=== PATIENT | male | born 1965 | race American Indian/Alaskan Native ===

== ENCOUNTER 2017-05-17 18:07 | Emergency (ER) | payer OTHER ==
[2017-05-17 19:33] VITALS: BP 145/82
--- NOTE | 2017-05-17 23:06 | Emergency Department Report ---
ED Recheck HPI - General Chief Complaint: Pain General Stated Complaint: MED REFILL Time Seen by Provider: 05/17/17 22:56 Source: patient Mode of arrival: Ambulatory Limitations: No Limitations - History of Present Illness Initial Comments: This is a 52-year-old male nontoxic, well nourished in appearance, no acute signs of distress presents to the ED complaining of medication refill. Patient stated he is currently from [place] and has been seeing a primary care doctor Dr. Velásquez in [place] and stated that the Christen stated he will not refill patient medication and is requesting patient to follow-up with a local primary care doctor. Patient denies any symptoms of headache, chest pain, shortness of breath, numbness, tingling, fever, chills, nausea, vomiting. Patient denies any symptoms. Patient stated he is here just to get a refill medication for pantoprazole, HCTZ, and ibuprofen. Patient denies any allergies. Medical history includes hypertension. MD Complaint: medication refill request Returns Today for: request for prescription Symptoms Since Prior Visit: no new symptoms Associated Symptoms: none. denies: fever, chills, chest pain, shortness of breath, rash, malaise, nasuea, abdominal pain - Related Data Previous Rx's Medication Instructions Recorded Last Taken Type Cephalexin [Keflex] 250 mg PO BID #10 capsule 07/08/16 Unknown Rx Hydrochlorothiazide [HCTZ] 25 mg PO QDAY #30 tablet 05/17/17 Unknown Rx Ibuprofen [Motrin 600 MG tab] 600 mg PO DAILY PRN #30 tablet 05/17/17 Unknown Rx Pantoprazole Sodium 40 mg PO DAILY #30 tablet. 05/17/17 Unknown Rx Allergies Allergy/AdvReac Type Severity Reaction Status Date / Time No Known Allergies Allergy Verified 07/07/16 23:09 ED Review of Systems ROS: Stated complaint: MED REFILL Other details as noted in HPI Constitutional: denies: chills, fever Eyes: denies: eye pain, eye discharge, vision change ENT: denies: ear pain, throat pain Respiratory: denies: cough, shortness of breath, wheezing Cardiovascular: denies: chest pain, palpitations Endocrine: no symptoms reported Gastrointestinal: denies: abdominal pain, nausea, diarrhea Genitourinary: denies: urgency, dysuria Musculoskeletal: denies: back pain, joint swelling, arthralgia Skin: denies: rash, lesions Neurological: denies: headache, weakness, paresthesias Psychiatric: denies: anxiety, depression Hematological/Lymphatic: denies: easy bleeding, easy bruising ED Past Medical Hx - Past Medical History Hx Hypertension: Yes Additional medical history: high cholestrol - Surgical History Additional Surgical History: hernia - Social History Smoking Status: Current Every Day Smoker Substance Use Type: Alcohol - Medications Home Medications: Home Medications Medication Instructions Recorded Confirmed Last Taken Type Cephalexin [Keflex] 250 mg PO BID #10 capsule 07/08/16 Unknown Rx Hydrochlorothiazide [HCTZ] 25 mg PO QDAY #30 tablet 05/17/17 Unknown Rx Ibuprofen [Motrin 600 MG tab] 600 mg PO DAILY PRN #30 tablet 05/17/17 Unknown Rx Pantoprazole Sodium 40 mg PO DAILY #30 tablet. 05/17/17 Unknown Rx ED Physical Exam - General Limitations: No Limitations General appearance: alert, in no apparent distress - Head Head exam: Present: atraumatic, normocephalic - Eye Eye exam: Present: normal appearance, PERRL, EOMI. Absent: scleral icterus, conjunctival injection, nystagmus, periorbital swelling, periorbital tenderness Pupils: Present: normal accommodation - ENT ENT exam: Present: normal exam, normal orophraynx, mucous membranes moist, TM's normal bilaterally, normal external ear exam - Neck Neck exam: Present: normal inspection, full ROM. Absent: tenderness, meningismus, lymphadenopathy, thyromegaly - Respiratory Respiratory exam: Present: normal lung sounds bilaterally. Absent: respiratory distress, wheezes, rales, rhonchi, stridor, chest wall tenderness, accessory muscle use, decreased breath sounds, prolonged expiratory - Cardiovascular Cardiovascular Exam: Present: regular rate, normal rhythm. Absent: systolic murmur, diastolic murmur, rubs, gallop - GI/Abdominal GI/Abdominal exam: Present: soft, normal bowel sounds - Rectal Rectal exam: Present: deferred - Extremities Exam Extremities exam: Present: normal inspection, full ROM, normal capillary refill. Absent: tenderness, pedal edema, joint swelling, calf tenderness - Back Exam Back exam: Present: normal inspection, full ROM. Absent: tenderness, CVA tenderness (R), CVA tenderness (L), muscle spasm, paraspinal tenderness, vertebral tenderness, rash noted - Neurological Exam Neurological exam: Present: alert, oriented X3, CN II-XII intact, normal gait, reflexes normal - Psychiatric Psychiatric exam: Present: normal affect, normal mood - Skin Skin exam: Present: warm, dry, intact, normal color. Absent: rash ED Course Vital Signs 05/17/17 19:27 Temperature 97.6 F Pulse Rate 60 Respiratory 16 Rate Blood Pressure 145/82 O2 Sat by Pulse 98 Oximetry - Reevaluation(s) Reevaluation #1: 05/17/17 23:04 Patient speaking in full sentences with no signs of distress. ED Recheck MDM - Medical Decision Making This is a 52-year-old male that presents with a list from Dr. Velásquez's office with all the medications that he is currently taking. The list does include pantoprazole sodium DR 40 mg daily, HCTZ 25 mg daily, and ibuprofen 600 mg by mouth daily. I will refill his medication and given follow-up with a primary care doctor. Critical care attestation.: If time is entered above; I have spent that time in minutes in the direct care of this critically ill patient, excluding procedure time. ED Disposition Clinical Impression: Medication refill Disposition: DC-01 TO HOME OR SELFCARE Is pt being admited?: No Does the pt Need Aspirin: No Condition: Stable Instructions: Pantoprazole (By mouth), Ibuprofen (By mouth), Hydrochlorothiazide (By mouth) Additional Instructions: follow-up with a primary care doctor in 3-5 days or if symptoms worsen and continue return to emergency room as soon as possible possible. Prescriptions: Hydrochlorothiazide [HCTZ] 25 mg PO QDAY #30 tablet Ibuprofen [Motrin 600 MG tab] 600 mg PO DAILY PRN #30 tablet PRN Reason: Pain Pantoprazole Sodium 40 mg PO DAILY #30 tablet. Referrals: CHANA ANN [Other] - 3-5 Days CHANA CARTY MD [Staff Physician] - 3-5 Days [facility] [Outside] - 3-5 Days [facility] [Outside] - 3-5 Days Forms: Work/School Release Form(ED)
== END 2017-05-17 23:18 | disposition home or self-care (01) ==
LOC: ED 18:07
DX: Z76.0 Encounter for issue of repeat prescription (principal); I10 Essential (primary) hypertension; E78.00 Pure hypercholesterolemia, unspecified; F17.200 Nicotine dependence, unspecified, uncomplicated
CPT/HCPCS: 99282

== ENCOUNTER 2017-06-20 10:46 | Emergency (ER) | payer OTHER ==
[2017-06-20 10:52] VITALS: BP 136/91
--- NOTE | 2017-06-20 12:33 | Emergency Department Report ---
ED Recheck HPI - General Chief Complaint: Medical Clearance Stated Complaint: MED REFILL Time Seen by Provider: 06/20/17 11:56 Source: patient Mode of arrival: Ambulatory Limitations: No Limitations - History of Present Illness Initial Comments: This 52-year-old male nontoxic, well nourished in appearance, no acute signs of distress presents to the ED for medication refill. Patient that he has state Medicaid and apparently has a provider at [facility] in stating he is going back next month and needs medication refill. Patient currently taking atenolol, molar pain, hydrochlorothiazide, pantoprazole, and ibuprofen. Patient denies any current symptoms or complaints. Patient stated he needs just medication refill. Denies any allergies. Past medical history includes hypertension. MD Complaint: medication refill request Returns Today for: request for prescription Symptoms Since Prior Visit: no new symptoms Associated Symptoms: none. denies: fever, chills, chest pain, shortness of breath, rash, malaise, nasuea, abdominal pain - Related Data Previous Rx's Medication Instructions Recorded Last Taken Type Cephalexin [Keflex] 250 mg PO BID #10 capsule 07/08/16 Unknown Rx Hydrochlorothiazide [HCTZ] 25 mg PO QDAY #30 tablet 05/17/17 Unknown Rx Ibuprofen [Motrin 600 MG tab] 600 mg PO DAILY PRN #30 tablet 05/17/17 Unknown Rx Pantoprazole Sodium 40 mg PO DAILY #30 tablet. 05/17/17 Unknown Rx Amitriptyline [Elavil] 50 mg PO DAILY #30 tablet 06/20/17 Unknown Rx Atenolol 50 mg PO DAILY #30 tablet 06/20/17 Unknown Rx Hydrochlorothiazide [HCTZ] 25 mg PO QDAY #30 tablet 06/20/17 Unknown Rx Ibuprofen [Motrin 600 MG tab] 600 mg PO Q8H PRN #30 tablet 06/20/17 Unknown Rx Allergies Allergy/AdvReac Type Severity Reaction Status Date / Time No Known Allergies Allergy Verified 07/07/16 23:09 ED Review of Systems ROS: Stated complaint: MED REFILL Other details as noted in HPI Constitutional: denies: chills, fever Eyes: denies: eye pain, eye discharge, vision change ENT: denies: ear pain, throat pain Respiratory: denies: cough, shortness of breath, wheezing Cardiovascular: denies: chest pain, palpitations Endocrine: no symptoms reported Gastrointestinal: denies: abdominal pain, nausea, diarrhea Genitourinary: denies: urgency, dysuria Musculoskeletal: denies: back pain, joint swelling, arthralgia Skin: denies: rash, lesions Neurological: denies: headache, weakness, paresthesias Psychiatric: denies: anxiety, depression Hematological/Lymphatic: denies: easy bleeding, easy bruising ED Past Medical Hx - Past Medical History Previous Medical History?: Yes Hx Hypertension: Yes Additional medical history: high cholestrol - Surgical History Past Surgical History?: Yes Additional Surgical History: hernia - Social History Smoking Status: Current Every Day Smoker Substance Use Type: Alcohol - Medications Home Medications: Home Medications Medication Instructions Recorded Confirmed Last Taken Type Cephalexin [Keflex] 250 mg PO BID #10 capsule 07/08/16 Unknown Rx Hydrochlorothiazide [HCTZ] 25 mg PO QDAY #30 tablet 05/17/17 Unknown Rx Ibuprofen [Motrin 600 MG tab] 600 mg PO DAILY PRN #30 tablet 05/17/17 Unknown Rx Pantoprazole Sodium 40 mg PO DAILY #30 tablet.dr 05/17/17 Unknown Rx Amitriptyline [Elavil] 50 mg PO DAILY #30 tablet 06/20/17 Unknown Rx Atenolol 50 mg PO DAILY #30 tablet 06/20/17 Unknown Rx Hydrochlorothiazide [HCTZ] 25 mg PO QDAY #30 tablet 06/20/17 Unknown Rx Ibuprofen [Motrin 600 MG tab] 600 mg PO Q8H PRN #30 tablet 06/20/17 Unknown Rx ED Physical Exam - General Limitations: No Limitations General appearance: alert, in no apparent distress - Head Head exam: Present: atraumatic, normocephalic - Eye Eye exam: Present: normal appearance - ENT ENT exam: Present: mucous membranes moist - Neck Neck exam: Present: normal inspection - Respiratory Respiratory exam: Present: normal lung sounds bilaterally. Absent: respiratory distress - Cardiovascular Cardiovascular Exam: Present: regular rate, normal rhythm. Absent: systolic murmur, diastolic murmur, rubs, gallop - GI/Abdominal GI/Abdominal exam: Present: soft, normal bowel sounds - Rectal Rectal exam: Present: deferred - Extremities Exam Extremities exam: Present: normal inspection - Back Exam Back exam: Present: normal inspection - Neurological Exam Neurological exam: Present: alert, oriented X3 - Psychiatric Psychiatric exam: Present: normal affect, normal mood - Skin Skin exam: Present: warm, dry, intact, normal color. Absent: rash ED Course Vital Signs 06/20/17 10:50 Temperature 98.1 F Pulse Rate 100 H Respiratory 16 Rate Blood Pressure 136/91 O2 Sat by Pulse 99 Oximetry - Reevaluation(s) Reevaluation #1: 06/20/17 12:28 Patient is speaking in full sentences with no signs of distress noted. ED Recheck MDM - Medical Decision Making Patient was referred to a primary care doctor and [facility] medical clinic. Critical care attestation.: If time is entered above; I have spent that time in minutes in the direct care of this critically ill patient, excluding procedure time. ED Disposition Clinical Impression: Medication refill Disposition: - TO HOME OR SELFCARE Is pt being admited?: No Does the pt Need Aspirin: No Condition: Stable Additional Instructions: Follow-up with a primary care doctor in 3-5 days or if symptoms worsen and continue return to emergency room as soon as possible possible. Prescriptions: Amitriptyline [Elavil] 50 mg PO DAILY #30 tablet Atenolol 50 mg PO DAILY #30 tablet Hydrochlorothiazide [HCTZ] 25 mg PO QDAY #30 tablet Ibuprofen [Motrin 600 MG tab] 600 mg PO Q8H PRN #30 tablet PRN Reason: Pain Referrals: PRIMARY CAREMD [Primary Care Provider] - 3-5 Days GIAN TAYLOR MD [Staff Physician] - 3-5 Days BITA GARCIA MD [Staff Physician] - 3-5 Days [facility] [Outside] - 3-[address] [facility] [Outside] - 3-5 Days Forms: Work/School Release Form(ED)
== END 2017-06-20 12:38 | disposition home or self-care (01) ==
LOC: ED 10:46
DX: Z76.0 Encounter for issue of repeat prescription (principal); I10 Essential (primary) hypertension; E78.5 Hyperlipidemia, unspecified; F17.200 Nicotine dependence, unspecified, uncomplicated
CPT/HCPCS: 99282

== ENCOUNTER 2017-07-30 15:34 | Emergency (ER) | payer MEDICARE, MEDICAID ==
[2017-07-30 16:03] VITALS: BP 157/100
[2017-07-30] MEDS ORDERED: HCTZ PO ONE (17:35)
--- NOTE | 2017-07-30 17:40 | Emergency Department Report ---
HPI - General Chief Complaint: Medical Clearance Time Seen by Provider: 07/30/17 17:20 - HPI HPI: 52-year-old male with a history of blood pressure presents to ED stating that he ran out of those medications 5 days ago and is here for refill. Patient states he has [id number] [place] from [facility] and will cannot be seen by [facility] provider. Patient states he has no symptoms today no chest pain or shortness of breath no fever no chills no dizziness. he states that is here to get his medication refill. ED Past Medical Hx - Past Medical History Previous Medical History?: Yes Hx Hypertension: Yes Additional medical history: high cholestrol - Surgical History Additional Surgical History: hernia - Social History Smoking Status: Current Every Day Smoker Substance Use Type: Alcohol - Medications Home Medications: Home Medications Medication Instructions Recorded Confirmed Last Taken Type Cephalexin [Keflex] 250 mg PO BID #10 capsule 07/08/16 Unknown Rx Hydrochlorothiazide [HCTZ] 25 mg PO QDAY #30 tablet 06/20/17 Unknown Rx Ibuprofen [Motrin 600 MG tab] 600 mg PO Q8H PRN #30 tablet 06/20/17 Unknown Rx Amitriptyline [Elavil] 50 mg PO DAILY #30 tablet 07/30/17 Unknown Rx Atenolol 50 mg PO DAILY #30 tablet 07/30/17 Unknown Rx Hydrochlorothiazide [HCTZ] 25 mg PO QDAY #30 tablet 07/30/17 Unknown Rx Ibuprofen [Motrin 600 MG tab] 600 mg PO DAILY PRN #30 tablet 07/30/17 Unknown Rx Pantoprazole Sodium 40 mg PO DAILY #30 tablet. 07/30/17 Unknown Rx ED Review of Systems ROS: Stated complaint: MEDS REFILL Other details as noted in HPI Constitutional: denies: chills, fever Eyes: denies: eye pain, eye discharge, vision change ENT: denies: ear pain, throat pain Respiratory: denies: cough, shortness of breath, wheezing Cardiovascular: denies: chest pain, palpitations Endocrine: no symptoms reported Gastrointestinal: denies: abdominal pain, nausea, diarrhea Genitourinary: denies: urgency, dysuria Musculoskeletal: denies: back pain, joint swelling, arthralgia Skin: denies: rash, lesions Neurological: denies: headache, weakness, paresthesias Psychiatric: denies: anxiety, depression Hematological/Lymphatic: denies: easy bleeding, easy bruising Physical Exam - Physical Exam Vital Signs: Vital Signs 07/30/17 15:57 Temperature 98.1 F Pulse Rate 114 H Respiratory 18 Rate Blood Pressure 157/100 O2 Sat by Pulse 98 Oximetry Physical Exam: GENERAL: Alert and oriented x3, no apparent distress, Normal Gait, atraumatic. HEAD: Head is normocephalic and a-traumatic. EYES: Extra ocular muscles are intact. Pupils are equal, round, and reactive to light and accommodation. LUNGS: Symetrical with respiration, No wheezing, no rales or crackles, CTAB. HEART: S1, S2 present, regular rate and rhythm without murmur, no rubs, no gallops. Non tender to palpation SKIN: Warm and dry, No lesions, No ulceration or induration present. ED Course Vital Signs 07/30/17 15:57 Temperature 98.1 F Pulse Rate 114 H Respiratory 18 Rate Blood Pressure 157/100 O2 Sat by Pulse 98 Oximetry ED Medical Decision Making - Medical Decision Making This is a year-old male presents for medication refill ED course: Patient received a dose of hydrochlorothiazide while the ED to reduce blood pressure. Patient is asymptomatic he reports no symptoms. Discussed with patient that I will refill his medications and will give him referral versus free clinics where he can go and get care. Vital signs are stable patient is in no acute distress Critical care attestation.: If time is entered above; I have spent that time in minutes in the direct care of this critically ill patient, excluding procedure time. ED Disposition Clinical Impression: Medication refill Disposition: DC-01 TO HOME OR SELFCARE Is pt being admited?: No Does the pt Need Aspirin: No Condition: Stable Instructions: Chronic Hypertension (ED) Additional Instructions: Make sure to follow up with the primary care physician as discussed. Take all your medications as you've been prescribed. If you have any worsening symptoms or develop new symptoms please return to ED immediately. Prescriptions: Amitriptyline [Elavil] 50 mg PO DAILY #30 tablet Atenolol 50 mg PO DAILY #30 tablet Hydrochlorothiazide [HCTZ] 25 mg PO QDAY #30 tablet Ibuprofen [Motrin 600 MG tab] 600 mg PO DAILY PRN #30 tablet PRN Reason: Pain Pantoprazole Sodium 40 mg PO DAILY #30 tablet. Referrals: SRINATH MARTIN MD [Primary Care Provider] - 3-5 Days [facility] [Outside] - 3-5 Days [facility] [Outside] - 3-5 Days [facility] [Outside] - 3-5 Days [facility] [Outside] - 3-5 Days [facility] [Outside] - 3-5 Days Forms: Work/School Release Form(ED) Time of Disposition: 17:40
== END 2017-07-30 18:06 | disposition home or self-care (01) ==
LOC: ED 15:34
DX: Z76.0 Encounter for issue of repeat prescription (principal); I10 Essential (primary) hypertension; E78.00 Pure hypercholesterolemia, unspecified; F17.200 Nicotine dependence, unspecified, uncomplicated
CPT/HCPCS: 99282

== ENCOUNTER 2017-08-30 06:51 | Emergency (ER) | payer MEDICAID, MEDICARE ==
[2017-08-30 14:23] VITALS: BP 133/96
--- NOTE | 2017-08-30 14:40 | Emergency Department Report ---
ED General Adult HPI - General Chief complaint: Recheck/Abnormal Lab/Rx Stated complaint: MEDS. REFILL Time Seen by Provider: 08/30/17 14:03 Source: patient Mode of arrival: Ambulatory Limitations: No Limitations - History of Present Illness Initial comments: Pt is a 52 M pmhx of HTN and HLD who presents with medication refill. Pt states that he has been out of his medication for one week. He also states that he regularly comes to the ED to get his medication refilled. Pt denies having any pain or having any medical complaints. Severity scale (0 -10): 0 - Related Data Previous Rx's Medication Instructions Recorded Last Taken Type Cephalexin [Keflex] 250 mg PO BID #10 capsule 07/08/16 Unknown Rx Hydrochlorothiazide [HCTZ] 25 mg PO QDAY #30 tablet 06/20/17 Unknown Rx Ibuprofen [Motrin 600 MG tab] 600 mg PO DAILY PRN #30 tablet 07/30/17 Unknown Rx Amitriptyline [Elavil] 50 mg PO DAILY #30 tablet 08/30/17 Unknown Rx Atenolol 50 mg PO DAILY #30 tablet 08/30/17 Unknown Rx Atorvastatin [Lipitor] 40 mg PO QHS #40 tab 08/30/17 Unknown Rx Hydrochlorothiazide [HCTZ] 25 mg PO QDAY #30 tablet 08/30/17 Unknown Rx Ibuprofen [Motrin 600 MG tab] 600 mg PO Q8H PRN #30 tablet 08/30/17 Unknown Rx Pantoprazole Sodium 40 mg PO DAILY #30 tablet. 08/30/17 Unknown Rx Allergies Allergy/AdvReac Type Severity Reaction Status Date / Time No Known Allergies Allergy Verified 08/30/17 08:57 ED Review of Systems ROS: Stated complaint: MEDS. REFILL Other details as noted in HPI Constitutional: denies: chills, fever Eyes: denies: eye pain, eye discharge, vision change ENT: denies: ear pain, throat pain Respiratory: denies: cough, shortness of breath, wheezing Cardiovascular: denies: chest pain, palpitations Endocrine: no symptoms reported Gastrointestinal: denies: abdominal pain, nausea, diarrhea Genitourinary: denies: urgency, dysuria Musculoskeletal: denies: back pain, joint swelling, arthralgia Skin: denies: rash, lesions Neurological: denies: headache, weakness, paresthesias Psychiatric: denies: anxiety, depression Hematological/Lymphatic: denies: easy bleeding, easy bruising ED Past Medical Hx - Past Medical History Previous Medical History?: Yes Hx Hypertension: Yes Additional medical history: high cholestrol - Surgical History Past Surgical History?: No Additional Surgical History: hernia - Social History Smoking Status: Current Every Day Smoker Substance Use Type: Alcohol - Medications Home Medications: Home Medications Medication Instructions Recorded Confirmed Last Taken Type Cephalexin [Keflex] 250 mg PO BID #10 capsule 07/08/16 Unknown Rx Hydrochlorothiazide [HCTZ] 25 mg PO QDAY #30 tablet 06/20/17 Unknown Rx Ibuprofen [Motrin 600 MG tab] 600 mg PO DAILY PRN #30 tablet 07/30/17 Unknown Rx Amitriptyline [Elavil] 50 mg PO DAILY #30 tablet 08/30/17 Unknown Rx Atenolol 50 mg PO DAILY #30 tablet 08/30/17 Unknown Rx Atorvastatin [Lipitor] 40 mg PO QHS #40 tab 08/30/17 Unknown Rx Hydrochlorothiazide [HCTZ] 25 mg PO QDAY #30 tablet 08/30/17 Unknown Rx Ibuprofen [Motrin 600 MG tab] 600 mg PO Q8H PRN #30 tablet 08/30/17 Unknown Rx Pantoprazole Sodium 40 mg PO DAILY #30 tablet. 08/30/17 Unknown Rx ED Physical Exam - General Limitations: No Limitations General appearance: alert, in no apparent distress - Head Head exam: Present: atraumatic, normocephalic - Eye Eye exam: Present: normal appearance - ENT ENT exam: Present: mucous membranes moist - Neck Neck exam: Present: normal inspection - Respiratory Respiratory exam: Present: normal lung sounds bilaterally. Absent: respiratory distress - Cardiovascular Cardiovascular Exam: Present: regular rate, normal rhythm. Absent: systolic murmur, diastolic murmur, rubs, gallop - GI/Abdominal GI/Abdominal exam: Present: soft, normal bowel sounds - Rectal Rectal exam: Present: deferred - Extremities Exam Extremities exam: Present: normal inspection - Back Exam Back exam: Present: normal inspection - Neurological Exam Neurological exam: Present: alert, oriented X3 - Psychiatric Psychiatric exam: Present: normal affect, normal mood - Skin Skin exam: Present: warm, dry, intact, normal color. Absent: rash ED Course Vital Signs 08/30/17 08/30/17 08:55 14:23 Temperature 98.2 F 98 F Pulse Rate 72 77 Respiratory 16 16 Rate Blood Pressure 144/100 Blood Pressure 133/96 [Left] O2 Sat by Pulse 97 99 Oximetry ED Medical Decision Making - Medical Decision Making Cdx: Medication refill I will refill pt's medications I also discussed with patient the need to get a primary care doctor to write prescriptions for him. Discussed plan with patient and patient agrees with plan additional verbal discharge instructions were given. Critical care attestation.: If time is entered above; I have spent that time in minutes in the direct care of this critically ill patient, excluding procedure time. ED Disposition Clinical Impression: Encounter for medication refill Disposition: DC-01 TO HOME OR SELFCARE Is pt being admited?: No Does the pt Need Aspirin: No Condition: Stable Prescriptions: Atorvastatin [Lipitor] 40 mg PO QHS #40 tab Amitriptyline [Elavil] 50 mg PO DAILY #30 tablet Atenolol 50 mg PO DAILY #30 tablet Hydrochlorothiazide [HCTZ] 25 mg PO QDAY #30 tablet Ibuprofen [Motrin 600 MG tab] 600 mg PO Q8H PRN #30 tablet PRN Reason: Pain Pantoprazole Sodium 40 mg PO DAILY #30 tablet.dr Referrals: DONNA ARNOLD MD [Staff Physician] - 3-5 Days
== END 2017-08-30 14:51 | disposition home or self-care (01) ==
LOC: ED 06:51
DX: Z76.0 Encounter for issue of repeat prescription (principal); I10 Essential (primary) hypertension; E78.00 Pure hypercholesterolemia, unspecified; F17.200 Nicotine dependence, unspecified, uncomplicated
CPT/HCPCS: 99282

== ENCOUNTER 2017-10-10 10:35 | Emergency (ER) | payer MEDICARE ==
[2017-10-10 11:04] VITALS: BP 157/100
--- NOTE | 2017-10-10 12:31 | Emergency Department Report ---
ED Recheck HPI - General Chief Complaint: Medical Clearance Stated Complaint: MED REFILL Time Seen by Provider: 10/10/17 12:12 Source: patient Mode of arrival: Ambulatory Limitations: No Limitations - History of Present Illness Initial Comments: This is a 52-year-old male nontoxic, well nourished in appearance, no acute signs of distress presents to the ED with c/o of medication refill. Patient stated he currently has no follow up appointment with primary care doctor and that he come to the ER to get a medication refill. Patient does state he has primary care doctor but was unable to make an appointment due to no availability 's. Patient stated he is asymptomatic and denies any symptoms. Patient denies any allergies. Past medical history includes GERD and hypertension. MD Complaint: medication refill request Symptoms Since Prior Visit: no new symptoms, improved Associated Symptoms: none. denies: fever, chills, chest pain, shortness of breath, rash, malaise, nasuea, abdominal pain - Related Data Previous Rx's Medication Instructions Recorded Last Taken Type Cephalexin [Keflex] 250 mg PO BID #10 capsule 07/08/16 Unknown Rx Hydrochlorothiazide [HCTZ] 25 mg PO QDAY #30 tablet 06/20/17 Unknown Rx Ibuprofen [Motrin 600 MG tab] 600 mg PO DAILY PRN #30 tablet 07/30/17 Unknown Rx Amitriptyline [Elavil] 50 mg PO DAILY #30 tablet 08/30/17 Unknown Rx Atenolol 50 mg PO DAILY #30 tablet 08/30/17 Unknown Rx Atorvastatin [Lipitor] 40 mg PO QHS #40 tab 08/30/17 Unknown Rx Hydrochlorothiazide [HCTZ] 25 mg PO QDAY #30 tablet 08/30/17 Unknown Rx Ibuprofen [Motrin 600 MG tab] 600 mg PO Q8H PRN #30 tablet 08/30/17 Unknown Rx Pantoprazole Sodium 40 mg PO DAILY #30 tablet. 08/30/17 Unknown Rx Amitriptyline [Elavil] 50 mg PO DAILY #30 tab 10/10/17 Unknown Rx Atenolol 50 mg PO DAILY #30 tablet 10/10/17 Unknown Rx AtorvaSTATin [Lipitor] 40 mg PO QHS #30 tab 10/10/17 Unknown Rx Hydrochlorothiazide [HCTZ] 25 mg PO QDAY #30 tablet 10/10/17 Unknown Rx Ibuprofen [Motrin] 600 mg PO Q8H PRN #30 tablet 10/10/17 Unknown Rx Pantoprazole Sodium 40 mg PO DAILY #30 tablet. 10/10/17 Unknown Rx Allergies Allergy/AdvReac Type Severity Reaction Status Date / Time No Known Allergies Allergy Verified 08/30/17 08:57 ED Review of Systems ROS: Stated complaint: MED REFILL Other details as noted in HPI Constitutional: denies: chills, fever Eyes: denies: eye pain, eye discharge, vision change ENT: denies: ear pain, throat pain Respiratory: denies: cough, shortness of breath, wheezing Cardiovascular: denies: chest pain, palpitations Endocrine: no symptoms reported Gastrointestinal: denies: abdominal pain, nausea, diarrhea Genitourinary: denies: urgency, dysuria Musculoskeletal: denies: back pain, joint swelling, arthralgia Skin: denies: rash, lesions Neurological: denies: headache, weakness, paresthesias Psychiatric: denies: anxiety, depression Hematological/Lymphatic: denies: easy bleeding, easy bruising ED Past Medical Hx - Past Medical History Hx Hypertension: Yes Hx GERD: Yes Additional medical history: high cholestrol,insomnia - Surgical History Additional Surgical History: hernia - Social History Smoking Status: Current Every Day Smoker Substance Use Type: Alcohol - Medications Home Medications: Home Medications Medication Instructions Recorded Confirmed Last Taken Type Cephalexin [Keflex] 250 mg PO BID #10 capsule 07/08/16 Unknown Rx Hydrochlorothiazide [HCTZ] 25 mg PO QDAY #30 tablet 06/20/17 Unknown Rx Ibuprofen [Motrin 600 MG tab] 600 mg PO DAILY PRN #30 tablet 07/30/17 Unknown Rx Amitriptyline [Elavil] 50 mg PO DAILY #30 tablet 08/30/17 Unknown Rx Atenolol 50 mg PO DAILY #30 tablet 08/30/17 Unknown Rx Atorvastatin [Lipitor] 40 mg PO QHS #40 tab 08/30/17 Unknown Rx Hydrochlorothiazide [HCTZ] 25 mg PO QDAY #30 tablet 08/30/17 Unknown Rx Ibuprofen [Motrin 600 MG tab] 600 mg PO Q8H PRN #30 tablet 08/30/17 Unknown Rx Pantoprazole Sodium 40 mg PO DAILY #30 tablet. 08/30/17 Unknown Rx Amitriptyline [Elavil] 50 mg PO DAILY #30 tab 10/10/17 Unknown Rx Atenolol 50 mg PO DAILY #30 tablet 10/10/17 Unknown Rx AtorvaSTATin [Lipitor] 40 mg PO QHS #30 tab 10/10/17 Unknown Rx Hydrochlorothiazide [HCTZ] 25 mg PO QDAY #30 tablet 10/10/17 Unknown Rx Ibuprofen [Motrin] 600 mg PO Q8H PRN #30 tablet 10/10/17 Unknown Rx Pantoprazole Sodium 40 mg PO DAILY #30 tablet. 10/10/17 Unknown Rx ED Physical Exam - General Limitations: No Limitations General appearance: alert, in no apparent distress - Head Head exam: Present: atraumatic, normocephalic - Eye Eye exam: Present: normal appearance - ENT ENT exam: Present: mucous membranes moist - Neck Neck exam: Present: normal inspection - Respiratory Respiratory exam: Present: normal lung sounds bilaterally. Absent: respiratory distress - Cardiovascular Cardiovascular Exam: Present: regular rate, normal rhythm. Absent: systolic murmur, diastolic murmur, rubs, gallop - GI/Abdominal GI/Abdominal exam: Present: soft, normal bowel sounds - Rectal Rectal exam: Present: deferred - Extremities Exam Extremities exam: Present: normal inspection - Back Exam Back exam: Present: normal inspection - Neurological Exam Neurological exam: Present: alert, oriented X3 - Psychiatric Psychiatric exam: Present: normal affect, normal mood - Skin Skin exam: Present: warm, dry, intact, normal color. Absent: rash ED Course Vital Signs 10/10/17 11:01 Temperature 98 F Pulse Rate 82 Respiratory 20 Rate Blood Pressure 157/100 O2 Sat by Pulse 100 Oximetry - Reevaluation(s) Reevaluation #1: 10/10/17 12:29 Patient is speaking in full sentences with no signs of distress noted. Critical care attestation.: If time is entered above; I have spent that time in minutes in the direct care of this critically ill patient, excluding procedure time. ED Disposition Clinical Impression: Medication refill HTN (hypertension) Qualifiers: Hypertension type: unspecified Qualified Code(s): I10 - Essential (primary) hypertension GERD (gastroesophageal reflux disease) Qualifiers: Esophagitis presence: without esophagitis Qualified Code(s): K21.9 - Gastro- esophageal reflux disease without esophagitis Disposition: - TO HOME OR SELFCARE Is pt being admited?: No Does the pt Need Aspirin: No Condition: Stable Instructions: Gastroesophageal Reflux Disease (ED), Hypertension (ED) Additional Instructions: Follow-up with a primary care doctor in 3-5 days or if symptoms worsen and continue return to emergency room as soon as possible. Keep a daily diary of your blood pressure and presented to primary care doctor. Prescriptions: AtorvaSTATin [Lipitor] 40 mg PO QHS #30 tab Amitriptyline [Elavil] 50 mg PO DAILY #30 tab Atenolol 50 mg PO DAILY #30 tablet Hydrochlorothiazide [HCTZ] 25 mg PO QDAY #30 tablet Ibuprofen [Motrin] 600 mg PO Q8H PRN #30 tablet PRN Reason: Pain Pantoprazole Sodium 40 mg PO DAILY #30 tablet. Referrals: PRIMARY CAREMD [Primary Care Provider] - 3-5 Days GIAN TAYLOR MD [Staff Physician] - 3-5 Days [facility] [Outside] - 3-5 Days [facility] [Outside] - 3-5 Days Forms: Work/School Release Form(ED)
== END 2017-10-10 13:04 | disposition home or self-care (01) ==
LOC: ED 10:35
DX: I10 Essential (primary) hypertension (principal); K21.9 Gastro-esophageal reflux disease without esophagitis; E78.00 Pure hypercholesterolemia, unspecified; F17.200 Nicotine dependence, unspecified, uncomplicated
CPT/HCPCS: 99282

== ENCOUNTER 2017-11-19 10:06 | Emergency (ER) | payer MEDICARE ==
--- NOTE | 2017-11-19 13:09 | Emergency Department Report ---
ED Medical Clearance HPI - General Chief complaint: Medical Clearance Stated complaint: MED REFILL Time Seen by Provider: 11/19/17 13:03 Source: patient Mode of arrival: Ambulatory Limitations: No Limitations - History of Present Illness Initial comments: 52yo male came in for medication refill. pt states that he gets his meds refilled from the ER every month. Pt states he is out of state medicaid and his insurance only allows him to get to ER or urgent care for med refill. Pt doesn' t have any complaints at this time. Pt denies n/v/cp/sob. pt denies fever, chills. Reason for Medical Clearance: other trauma Alledged Intoxication: No Compliant with Home Medications: Yes Traumatic Symptoms: denies traumatic injury Associated Symptoms: denies: chest pain, shortness of breath, palpitations, diaphoresis, denies other symptoms, confusion, cough, fever/chills, headaches, anorexia, malaise, nausea/vomiting, rash, seizure, syncope, weakness Home medications: Previous Rx's Medication Instructions Recorded Last Taken Type Cephalexin [Keflex] 250 mg PO BID #10 capsule 07/08/16 Unknown Rx Amitriptyline [Elavil] 50 mg PO DAILY #30 tablet 08/30/17 Unknown Rx Atenolol 50 mg PO DAILY #30 tablet 08/30/17 Unknown Rx Atorvastatin [Lipitor] 40 mg PO QHS #40 tab 08/30/17 Unknown Rx Hydrochlorothiazide [HCTZ] 25 mg PO QDAY #30 tablet 08/30/17 Unknown Rx Ibuprofen [Motrin 600 MG tab] 600 mg PO Q8H PRN #30 tablet 08/30/17 Unknown Rx Hydrochlorothiazide [HCTZ] 25 mg PO QDAY #30 tablet 10/10/17 Unknown Rx Ibuprofen [Motrin] 600 mg PO Q8H PRN #30 tablet 10/10/17 Unknown Rx Pantoprazole Sodium 40 mg PO DAILY #30 tablet.dr 10/10/17 Unknown Rx Amitriptyline [Elavil] 50 mg PO DAILY #8 tab 11/19/17 Unknown Rx Atenolol 50 mg PO DAILY #30 tablet 11/19/17 Unknown Rx AtorvaSTATin [Lipitor] 40 mg PO QHS #30 tab 11/19/17 Unknown Rx Hydrochlorothiazide [HCTZ] 25 mg PO QDAY #30 tablet 11/19/17 Unknown Rx Ibuprofen [Motrin 600 MG tab] 600 mg PO DAILY PRN #30 tablet 11/19/17 Unknown Rx Pantoprazole Sodium 40 mg PO DAILY #30 tablet. 11/19/17 Unknown Rx Allergies/Adverse reactions: Allergies Allergy/AdvReac Type Severity Reaction Status Date / Time No Known Allergies Allergy Verified 08/30/17 08:57 ED Review of Systems ROS: Stated complaint: MED REFILL Other details as noted in HPI Constitutional: denies: chills, fever Eyes: denies: eye pain, eye discharge, vision change ENT: denies: ear pain, throat pain Respiratory: denies: cough, shortness of breath, wheezing Cardiovascular: denies: chest pain, palpitations Endocrine: no symptoms reported Gastrointestinal: denies: abdominal pain, nausea, diarrhea Genitourinary: denies: urgency, dysuria Musculoskeletal: denies: back pain, joint swelling, arthralgia Skin: denies: rash, lesions Neurological: denies: headache, weakness, paresthesias Psychiatric: denies: anxiety, depression Hematological/Lymphatic: denies: easy bleeding, easy bruising ED Past Medical Hx - Past Medical History Hx Hypertension: Yes Hx GERD: Yes Additional medical history: high cholestrol,insomnia - Surgical History Additional Surgical History: hernia - Social History Smoking Status: Current Every Day Smoker Substance Use Type: Alcohol, Marijuana - Medications Home Medications: Home Medications Medication Instructions Recorded Confirmed Last Taken Type Cephalexin [Keflex] 250 mg PO BID #10 capsule 07/08/16 Unknown Rx Amitriptyline [Elavil] 50 mg PO DAILY #30 tablet 08/30/17 Unknown Rx Atenolol 50 mg PO DAILY #30 tablet 08/30/17 Unknown Rx Atorvastatin [Lipitor] 40 mg PO QHS #40 tab 08/30/17 Unknown Rx Hydrochlorothiazide [HCTZ] 25 mg PO QDAY #30 tablet 08/30/17 Unknown Rx Ibuprofen [Motrin 600 MG tab] 600 mg PO Q8H PRN #30 tablet 08/30/17 Unknown Rx Hydrochlorothiazide [HCTZ] 25 mg PO QDAY #30 tablet 10/10/17 Unknown Rx Ibuprofen [Motrin] 600 mg PO Q8H PRN #30 tablet 10/10/17 Unknown Rx Pantoprazole Sodium 40 mg PO DAILY #30 tablet. 10/10/17 Unknown Rx Amitriptyline [Elavil] 50 mg PO DAILY #8 tab 11/19/17 Unknown Rx Atenolol 50 mg PO DAILY #30 tablet 11/19/17 Unknown Rx AtorvaSTATin [Lipitor] 40 mg PO QHS #30 tab 11/19/17 Unknown Rx Hydrochlorothiazide [HCTZ] 25 mg PO QDAY #30 tablet 11/19/17 Unknown Rx Ibuprofen [Motrin 600 MG tab] 600 mg PO DAILY PRN #30 tablet 11/19/17 Unknown Rx Pantoprazole Sodium 40 mg PO DAILY #30 tablet. 11/19/17 Unknown Rx ED Physical Exam - General Limitations: No Limitations General appearance: alert, in no apparent distress - Head Head exam: Present: atraumatic, normocephalic - Eye Eye exam: Present: normal appearance - ENT ENT exam: Present: mucous membranes moist - Neck Neck exam: Present: normal inspection - Respiratory Respiratory exam: Present: normal lung sounds bilaterally. Absent: respiratory distress - Cardiovascular Cardiovascular Exam: Present: regular rate, normal rhythm. Absent: systolic murmur, diastolic murmur, rubs, gallop - GI/Abdominal GI/Abdominal exam: Present: soft, normal bowel sounds - Rectal Rectal exam: Present: deferred - Extremities Exam Extremities exam: Present: normal inspection - Back Exam Back exam: Present: normal inspection - Neurological Exam Neurological exam: Present: alert, oriented X3 - Psychiatric Psychiatric exam: Present: normal affect, normal mood - Skin Skin exam: Present: warm, dry, intact, normal color. Absent: rash ED Course Vital Signs 11/19/17 10:15 Temperature 98.4 F Pulse Rate 91 H Respiratory 16 Rate Blood Pressure 150/94 O2 Sat by Pulse 99 Oximetry ED Medical Decision Making - Medical Decision Making 52yo male with PMHx of HTN, HLD came in for med refill. pt states that he needs his meds filled as he has out of state medicaid insurance. Pt denies n/v/cp/ sob. I did explain to pt that we will fill up all his meds including for HTN, HLD, but he will need to see a pcp to fill up his pysch meds. ED Disposition Clinical Impression: Medication refill Disposition: DC- TO HOME OR SELFCARE Is pt being admited?: No Does the pt Need Aspirin: No Condition: Stable Prescriptions: AtorvaSTATin [Lipitor] 40 mg PO QHS #30 tab Amitriptyline [Elavil] 50 mg PO DAILY #8 tab Atenolol 50 mg PO DAILY #30 tablet Hydrochlorothiazide [HCTZ] 25 mg PO QDAY #30 tablet Ibuprofen [Motrin 600 MG tab] 600 mg PO DAILY PRN #30 tablet PRN Reason: Pain Pantoprazole Sodium 40 mg PO DAILY #30 tablet.dr Referrals: PRIMARY CARE, [Primary Care Provider] - [facility] (Please Followup with ( family physician) [facility] for further evaluation, treatment and disposition) DAV GLEZ JR, MD [Staff Physician] - 3-5 Days Time of Disposition: 13:23
[2017-11-19 13:39] VITALS: BP 152/89
== END 2017-11-19 13:40 | disposition home or self-care (01) ==
LOC: ED 10:06
DX: I10 Essential (primary) hypertension (principal); E78.00 Pure hypercholesterolemia, unspecified; G47.00 Insomnia, unspecified; K21.9 Gastro-esophageal reflux disease without esophagitis; F17.200 Nicotine dependence, unspecified, uncomplicated; Z76.0 Encounter for issue of repeat prescription
CPT/HCPCS: 99282

== ENCOUNTER 2017-12-19 09:50 | Emergency (ER) | payer SELFPAY ==
[2017-12-19 09:59] VITALS: BP 139/90
--- NOTE | 2017-12-19 10:22 | Emergency Department Report ---
Blank Doc - Documentation Documentation: Patient is 52 years old male coming to the ER for medication refills. Patient denied any symptoms. Patient is medically screened to follow-up with his primary care physician. He was given [facility] to follow-up.
== END 2017-12-19 10:32 | disposition home or self-care (01) ==
LOC: ED 09:50
DX: Z76.0 Encounter for issue of repeat prescription (principal); Z53.21 Procedure and treatment not carried out due to patient leaving prior to being seen by health care provider
CPT/HCPCS: 99282

== ENCOUNTER 2018-09-09 14:12 | Emergency (ER) | payer SELFPAY ==
[2018-09-09 14:29] VITALS: BP 135/92
--- NOTE | 2018-09-09 14:56 | Emergency Department Report ---
Upper Extremity - HPI Chief Complaint: Extremity Problem,Nontraumatic Stated Complaint: (L) ARM PAIN Time Seen by Provider: 09/09/18 14:56 Upper Extremity: Left Arm (lump and painful) Occurred When: >5 Days (2 months) Mechanism: Unsure Severity: severe (7/10) Symptoms: Yes Swelling, No Pain with Movement, No Deformity, No Limited Range of Movement, No Numbness, No Weakness, No Bruising/Ecchymosis Other History: 53-year-old male who presents to the emergency room after being seen at [facility] 2 weeks ago for left arm pain and report that he has a lump in his left arm and it keeps him up at night. He said they did x-ray and they did not see anything and told them that there is nothing wrong with him. Patient reports that not has been there for 2 months and it 7 out of 10 and feels sore. Pain is worse to touch. Denies any redness. Denies any drainage. Pain is constant. Denies any restriction of movement to her extremities. Denies any previous injuries. ED Review of Systems ROS: Stated complaint: (L) ARM PAIN Other details as noted in HPI Constitutional: denies: chills, fever Respiratory: denies: cough, shortness of breath, wheezing Cardiovascular: denies: chest pain, palpitations, edema, syncope Musculoskeletal: arthralgia. denies: back pain, myalgia Skin: other (lump to left arm) Neurological: denies: weakness, numbness, paresthesias ED Past Medical Hx - Past Medical History Previous Medical History?: Yes Hx Hypertension: Yes Hx GERD: Yes Additional medical history: high cholestrol,insomnia - Surgical History Past Surgical History?: Yes Additional Surgical History: hernia - Family History Family history: hypertension - Social History Smoking Status: Current Every Day Smoker Substance Use Type: Alcohol - Medications Home Medications: Home Medications Medication Instructions Recorded Confirmed Last Taken Type Cephalexin [Keflex] 250 mg PO BID #10 capsule 07/08/16 Unknown Rx Amitriptyline [Elavil] 50 mg PO DAILY #30 tablet 08/30/17 Unknown Rx Atenolol 50 mg PO DAILY #30 tablet 08/30/17 Unknown Rx Atorvastatin [Lipitor] 40 mg PO QHS #40 tab 08/30/17 Unknown Rx Ibuprofen [Motrin 600 MG tab] 600 mg PO Q8H PRN #30 tablet 08/30/17 Unknown Rx hydroCHLOROthiazide [HCTZ] 25 mg PO QDAY #30 tablet 08/30/17 Unknown Rx Ibuprofen [Motrin] 600 mg PO Q8H PRN #30 tablet 10/10/17 Unknown Rx Pantoprazole Sodium 40 mg PO DAILY #30 tablet. 10/10/17 Unknown Rx hydroCHLOROthiazide [HCTZ] 25 mg PO QDAY #30 tablet 10/10/17 Unknown Rx Amitriptyline [Elavil] 50 mg PO DAILY #8 tab 11/19/17 Unknown Rx Atenolol 50 mg PO DAILY #30 tablet 11/19/17 Unknown Rx AtorvaSTATin [Lipitor] 40 mg PO QHS #30 tab 11/19/17 Unknown Rx Ibuprofen [Motrin 600 MG tab] 600 mg PO DAILY PRN #30 tablet 11/19/17 Unknown Rx Pantoprazole Sodium 40 mg PO DAILY #30 tablet. 11/19/17 Unknown Rx hydroCHLOROthiazide [HCTZ] 25 mg PO QDAY #30 tablet 11/19/17 Unknown Rx Ibuprofen [Motrin] 800 mg PO Q8HR PRN #12 tablet 09/09/18 Unknown Rx Upper Extremity Exam - Exam General: Vital signs noted. No distress. Alert and acting appropriately. This is a 50-year-old male well-nourished well-developed in no acute distress Head and Torso: No HEENT Abnormality, No Neck Tenderness, No Chest/Lungs Abnormality, No Abdominal Tenderness, No Back Tenderness Shoulder Exam: Yes Normal Range of Motion in Shoulder, No Shoulder Tenderness, No Clavicle Tenderness, No Shoulder Deformity, No AC Joint Tenderness Arm Exam: Yes Arm/Humerus Tenderness (left anterior medial arm with 6 x 7 cm popliteal area. No erythema. No drainage. No fluctuance. No induration), No Arm Deformity Elbow: Yes Normal Range of Motion in Elbow, No Elbow Tenderness, No Elbow Deformity Forearm: No Forearm Tenderness, No Forearm Deformity, No Pain with Pronation, No Pain with Supination Wrist: Yes Normal ROM in Wrist, No Wrist Tenderness, No Wrist Deformity, No Snuffbox Tenderness, No Pain with Axial Thumb Compression Hand: Yes Normal ROM in Digit(s), No Hand Tenderness, No Hand Deformity, No Digit Tenderness, No Digit(s) Deformity, No Tendon Dysfunction CMS Exam: Yes Normal Distal Pulses (No cce. + 2 pulses in all extremities, no neurovascular compromise), Yes Normal Capillary Refill (less than 3 seconds), Yes Normal Distal Sensation (patient with good color, sensation, temperature and movement to the extremity), No Broken Skin Front/Back of Body, Lg (Color): 1 - 6 x 7 cm palpable area to left medial anterior arm. No induration, erythema or fluctuance. ED Course Vital Signs 09/09/18 14:26 Temperature 97.9 F Pulse Rate 70 Respiratory 16 Rate Blood Pressure 135/92 O2 Sat by Pulse 100 Oximetry - Reevaluation(s) Reevaluation #1: 09/09/18 15:11 Patient given Motrin 800 mg by mouth and emergency room for pain. ED Medical Decision Making - Medical Decision Making This is a 53-year-old male here report that he is having lump to his left upper arm 2 months he went to [facility] and had x-ray and these told him that there was nothing wrong with him. He said this happened 2 weeks ago. Physical findings for 6 x 7 cm area to left arm that is palpable but no induration, erythema or fluctuance. I discussed the patient since he had an x-ray 2 weeks ago that did not show any bony injury then he will need to follow-up outpatient with a surgeon for possible biopsy. She does not have access to medical care such, refer him to [facility] to call and schedule appointment and I will also refer him to surgeon but they can also give him community resources. I discussed the diagnosis and treatment plan and he voiced understanding. Patient given Motrin 800 mg by mouth for pain. Vital signs stable he is afebrile and pain is better. Discharged home with prescripti on for Motrin and to follow-up with outpatient primary care surgeon in 3-5 days - Differential Diagnosis malignancy versus benign lump, lipoma, abscess Critical care attestation.: If time is entered above; I have spent that time in minutes in the direct care of this critically ill patient, excluding procedure time. ED Disposition Clinical Impression: Lump of skin of left upper extremity, Arm pain, left Disposition: DC-01 TO HOME OR SELFCARE Is pt being admited?: No Does the pt Need Aspirin: No Condition: Stable Instructions: Superficial Mass Needle Biopsy (ED), Arthralgia (ED) Additional Instructions: follow up with [facility] or [facility] primary care for evaluation of left arm lump. Follow up in 3-5 days See referral to surgery for evaluation of left arm mass. See discharge instructions for information on needle biopsy. X-ray did not show any abnormality so you have to see a specialist to evaluate. Take Motrin for pain as prescribed. Take this medication with food as it can cause upset stomach If you are arm pain worsens, increase in mass, redness, swelling, difficulty moving extremity, please return to emergency room [facility] Referrals: [facility] [Outside] - 3-5 Days [facility] [Outside] - 3-5 Days DAJUAN ALMENDAREZ MD [Staff Physician] - 3-5 Days Forms: Work/School Release Form(ED)
[2018-09-09] MEDS ORDERED: IBUPROFEN PO ONE (14:57)
== END 2018-09-09 15:38 | disposition home or self-care (01) ==
LOC: ED 14:12
DX: M79.602 Pain in left arm (principal); R22.32 Localized swelling, mass and lump, left upper limb; I10 Essential (primary) hypertension; K21.9 Gastro-esophageal reflux disease without esophagitis; E78.00 Pure hypercholesterolemia, unspecified; F17.200 Nicotine dependence, unspecified, uncomplicated
CPT/HCPCS: 99282

== ENCOUNTER 2022-03-12 06:34 | Emergency (ER) | payer SELFPAY ==
[2022-03-12 07:40] VITALS: BP 150/90
== END 2022-03-12 14:15 | disposition left against medical advice (07) ==
LOC: ED 06:34
DX: R52 Pain, unspecified (principal); Z53.21 Procedure and treatment not carried out due to patient leaving prior to being seen by health care provider